=== PATIENT | female | born 1995 | race Caucasian/White ===

== ENCOUNTER 2020-04-11 11:39 | Emergency (ER) | payer BC, SELFPAY ==
[2020-04-11 12:08] VITALS: BP 130/79; PULSE 82; RESP 16; TEMP 36.8; O2SAT 100
--- NOTE | 2020-04-11 12:44 | ED.SKABFB ---
HPI - Skin/Abscess/Foreign Bdy General Chief complaint: Skin/Abscess/Foreign Body Stated complaint: fell left knee pain Time Seen by Provider: 04/11/20 12:45 Source: patient and RN notes reviewed Mode of arrival: ambulatory Limitations: no limitations History of Present Illness HPI narrative: This is a 24 years old female presented office for evaluation of possible skin infection of her left knee. She accidentally fell and scraped knee about 5 days ago. She has been tented her wound with alcohol, peroxide, and covering it up with Neosporin and dressing. She noticed the pain has increasing with swelling. Td is up-to-date. Denies history of MRSA. Related Data Allergies Allergy/AdvReac Type Severity Reaction Status Date / Time ampicillin Allergy Unknown Verified 01/12/17 07:25 Penicillins Allergy Unknown Dyspnea / Verified 01/12/17 07:25 SOB venom-honey bee Allergy Unknown Verified 01/12/17 07:25 Review of Systems Review of Systems: Narrative: CONSTITUTIONAL: Denies fever or feeling ill CARDIOVASCULAR: Denies chest pain RESPIRATORY: Denies dyspnea GASTROINTESTINAL: Denies abdominal pain, nausea, vomiting SKIN: Reports skin abrasion on her left hand, knee and great toe MUSCULOSKELETAL: Reports left knee pain with bending or walking and touching NEUROLOGIC: Denies lightheaded PMFSH Comments At time of signature, I agree with nursing past medical, surgical, social and family history. There is no relevant family history pertinent to the presenting complaint. Exam Narrative: Exam Narrative: GENERAL: This is a well-nourished, well-developed patient, in no apparent distress. CARDIOVASCULAR: Regular rate and rhythm without murmurs, gallops, or rubs. RESPIRATORY: Clear to auscultation. Breath sounds equal bilaterally. No wheezes, rales, or rhonchi. GASTROINTESTINAL: Abdomen soft, non-tender, nondistended. Bowel sounds are active. No hepato-splenomegaly, or palpable masses. No guarding. NEURO: awake, alert, and oriented to person, place and time. There were no obvious focal neurologic abnormalities. EXTREMITIES: Right knee with ROM. Left lateral knee cap note skin abrasion with scab with underlying edematous, erythema, tender and warmth with clear demarcation. NO pain on rectus muscle or patella or tibial tuberosity. No calf tenderness. Pedal pulse intact.Wound on her first dorsal thumb and great toe appear healing as expected. Course Vital Signs Vital signs: Vital Signs Temperature 98.2 F 04/11/20 12:08 Pulse Rate 82 04/11/20 12:08 Respiratory Rate 16 04/11/20 12:08 Blood Pressure 130/79 04/11/20 12:08 Pulse Oximetry 100 04/11/20 12:08 Temperature 98.2 F 04/11/20 12:08 Pulse Rate 82 04/11/20 12:08 Respiratory Rate 16 04/11/20 12:08 Blood Pressure 130/79 04/11/20 12:08 Pulse Oximetry 100 04/11/20 12:08 MDM - Skin/Abscess/Foreign Bdy MDM Narrative Medical decision making narrative: Discharge instructions reviewed with patient, as well as provided in writing per nursing staff. The instructions also include specific and strict return/GO TO THE ER as well as f/u information. All questions have been answered, and the patient deny any further questions with discharge and discharge plan. Differential Diagnosis Differential diagnosis: Likely abscess of skin or subcutaneous tissue, urticaria, cellulitis, impetigo and contact dermatitis Critical Care Time Critical Care Time Critical Care Time: No Discharge Plan Discharge Clinical Impression: Cellulitis Qualifiers: Site of cellulitis: extremity Site of cellulitis of extremity: lower extremity Laterality: left Qualified Code(s): L03.116 - Cellulitis of left lower limb Patient Disposition: Home, Self-Care Condition: Stable Instructions: Antibiotic Form, Cellulitis (DC) Additional Instructions: Clean with soap and water only; Avoid using alcohol and peroxide or covering it to promote faster healing. Elevate the affect
== END 2020-04-11 13:00 | disposition home or self-care (01) ==
PROVIDERS: Emergency Provider Nurse Practitioner; PCP Family Medicine
DX: L03.116 Cellulitis of left lower limb (principal); W19.XXXA Unspecified fall, initial encounter
CPT/HCPCS: 99213; G0463

== ENCOUNTER 2022-06-14 22:19 | Inpatient (IN) | payer OTHER, MEDICAID, SELFPAY ==
--- NOTE | 2022-06-14 22:19 | LDADM ---
This patient, Nyasia Walker, was admitted to Labor/Delivery/Recovery 107 on 06/14/22 at 22:19. Plans for labor, pain management and were discussed with patient. Patient/family oriented to hospital policies and general routines including ID bracelet, bed and alarms, visiting hours, pain management, procedures, bathroom and other care routines, personal items, smoking policy, room service/diet and guest tray routines, infant security routines, and visiting hours. Patient/Family are encouraged to report perceived risks to care and to ask questions if they do not understand what they are told or what they should do. See OBIX for further documentation.
[2022-06-14 22:43] VITALS: TEMP 36.6
[2022-06-14] MEDS: LACTATED RINGERS 1,000 ML 125 ML IV CONT (22:57)
[2022-06-14] MEDS: ceFAZolin 2 GM/D5W 50 ML 2 GM/50 ML BAG IVPB (22:57)
[2022-06-14] MEDS: fentaNYL CITRATE INJ (*CRX) 100 MCG/2 ML VIAL 50 MCG IV PUSH (23:03)
[2022-06-14 23:05] VITALS: BMI 30.2
[2022-06-14 23:16] VITALS: BP 160/98; PULSE 80
[2022-06-14 23:18] VITALS: BP 111/52; PULSE 88
[2022-06-14 23:20] LABS: Basophils Percent Auto 0.2 % (0.2-1.2); Eosinophils Absolute Auto 0.1 K/mm3 (0-0.3); Eosinophils Percent Auto 0.7 % (0-4.4); Hematocrit 34.6 % (37.0-47.0); Immature Granulocyte Absolute 0.05 K/mm3 (0.00-0.031); Immature Granulocyte Percent A 0.4 % (0-0.5); Lymphocytes Absolute Auto 2.03 K/mm3 (0.9-3.2); Lymphocytes Percent Auto 17.1 % (18.3-44.2); Mean Corpuscular HGB Conc 31.8 g/dl (32-36); Mean Corpuscular Hemoglobin 28.3 pg (26-34); Mean Corpuscular Volume 88.9 fl (80-100); Mean Platelet Volume 11.4 fl (7.4-10.4); Monocytes Absolute Auto 0.8 K/mm3 (0.1-0.6); Monocytes Percent Auto 6.3 % (2.6-8.5); Neutrophils Percent Auto 75.3 % (45.5-73.1); Platelet Count Result 287 k/mm3 (150-375); Red Blood Count 3.89 M/mm3 (4.2-5.4); Red Cell Distribution Width 13.8 % (11.5-14.5); White Blood Count 11.9 K/mm3 (4.5-10.0)
[2022-06-14 23:32] VITALS: BP 138/81; PULSE 87
[2022-06-14 23:46] VITALS: BP 158/139
[2022-06-15] VITALS (202 sets, daily range): BP systolic 94–176; BP diastolic 40–139; PULSE 27–267; RESP 16–18; TEMP 36.6–37.2; O2SAT 72–100
[2022-06-15 00:11] LABS: HIV 1/2 Ab P24 Ag Result Negative (Negative)
[2022-06-15] MEDS: fentaNYL CITRATE INJ (*CRX) 100 MCG/2 ML VIAL 50 MCG IV PUSH (00:11)
[2022-06-15] MEDS: LACTATED RINGERS 1,000 ML 125 ML IV CONT ×2 (00:41→03:58)
--- NOTE | 2022-06-15 01:01 | WPDANESEPP ---
Anes - Eval Pre Procedure Procedure: Labor epidural Date/Time: 06/15/22 01:01 Surgeon: Dustin Allen Preop Diagnosis: Abd pain with contractions Pre Op Diagnosis: Leaking Patient Data Age: 26 Gender: F Height: 1.73 m Weight: 90 kg Last Vital Signs Temp 98 F 06/14/22 22:43 Pulse 89 06/15/22 00:14 BP 138/83 06/15/22 00:14 O2 Del Method Room Air 06/14/22 23:05 Allergies Allergy/AdvReac Type Severity Reaction Status Date / Time venom-honey bee Allergy Intermediate Swelling Verified 06/14/22 23:10 acetaminophen [From Percocet] Allergy Unknown Vomiting Verified 06/14/22 23:10 ampicillin Allergy Unknown Dyspnea / Verified 06/14/22 23:10 SOB oxycodone [From Percocet] Allergy Unknown Vomiting Verified 06/14/22 23:10 Penicillins Allergy Unknown Dyspnea / Verified 06/14/22 23:10 SOB Home Medications Medication Instructions Recorded Confirmed Type prenat.vits,loan,hvd-rrel-pjebj 1 tablet PO DAILY 05/21/22 06/14/22 History Laboratory Tests 06/14/22 06/14/22 06/14/22 23:00 23:00 23:00 WBC 11.9 K/mm3 H K/mm3 (4.5-10.0) RBC 3.89 M/mm3 L M/mm3 (4.2-5.4) Hgb 11.0 g/dL L g/dL (12.0-15.0) Hct 34.6 % L % (37.0-47.0) MCV 88.9 fl fl (80-100) MCH 28.3 pg pg (26-34) MCHC 31.8 g/dl L g/dl (32-36) RDW 13.8 % % (11.5-14.5) Plt Count 287 k/mm3 k/mm3 (150-375) MPV 11.4 fl H fl (7.4-10.4) Immature Gran % (Auto) 0.4 % % (0-0.5) Neut % (Auto) 75.3 % H % (45.5-73.1) Lymph % (Auto) 17.1 % L % (18.3-44.2) [place] % (Auto) 6.3 % % (2.6-8.5) Eos % (Auto) 0.7 % % (0-4.4) Baso % (Auto) 0.2 % % (0.2-1.2) Lymph # (Auto) 2.03 K/mm3 K/mm3 (0.9-3.2) [place] # (Auto) 0.8 K/mm3 H K/mm3 (0.1-0.6) Eos # (Auto) 0.1 K/mm3 K/mm3 (0-0.3) Baso # (Auto) 0.0 K/mm3 K/mm3 (0.0-0.1) Abs Immat Gran (auto) 0.05 K/mm3 H K/mm3 (0.00-0.031) Absolute Neuts (auto) 9.0 K/mm3 H K/mm3 (1.3-6.7) Absolute Nucleated RBC 0.0 K/mm3 K/mm3 (0.0-0.012) Nucleated RBC % 0.0 % % (0.0-0.2) RPR Pending HIV 1&2 Ab/P24 Ag 4thGn Negative (Negative) Blood Type Antibody Screen 06/14/22 23:00 WBC RBC Hgb Hct MCV MCH MCHC RDW Plt Count MPV Immature Gran % (Auto) Neut % (Auto) Lymph % (Auto) [place] % (Auto) Eos % (Auto) Baso % (Auto) Lymph # (Auto) [place] # (Auto) Eos # (Auto) Baso # (Auto) Abs Immat Gran (auto) Absolute Neuts (auto) Absolute Nucleated RBC Nucleated RBC % RPR HIV 1&2 Ab/P24 Ag 4thGn Blood Type O Positive Antibody Screen Negative Patient hx anesthesia problems: none Family hx anesthesia problems: none Results Review: All pre-operative results and documents have been reviewed as part of the pre-operative evaluation. [facility] Past Medical History Medical History (Updated 06/15/22 @ 01:02 by Yunior Meza CRNA) Obesity and not yet delivered Family History Family History (Updated 05/21/22 @ 15:43 by Chip Pemberton RN) Father Hypertension Mother Hypertension Grandparent Hypertension Grandparent Heart attack Hypertension Social History Social History Smoking status: Never smoker Substance use: never Spiritual care concerns: No Exam Day of Procedure 06/15/22 01:01 Patient weight: obese Airway: Mallampati scale class II
--- NOTE | 2022-06-15 03:50 | WPDOBADMIT ---
Obstetrics - Admit Note Admission Note: record reviewed. Additions to the history and/or subsequent changes in the physical findings follow. 26 y/o G1 at 39 weeks with a gush of fluid at 2110 last evening. SROM confirmed on L&D. Contractions began afterward. She is now comfortable with epidural. Meconium-stained fluid noted. GBS pos, with PCN allergy. FHR decelerations with tachysystole, so she received one dose of terbutaline. FHR has recovered. AVSS NST 120 reactive TOCO: contractions every 4-5 min ABD soft, nontender, gravid, vertex EXT nontender Cervix /0 A: IUP at 39 weeks with SROM, meconium, GBS pos. P: Expectant management. Cefazolin. Peds aware. Anticipate .
[2022-06-15] MEDS: FAMOTIDINE 20 MG/2 ML VIAL IV PUSH (03:52)
[2022-06-15] MEDS: ONDANSETRON INJ 4 MG/2 ML VIAL IV PUSH (04:50)
[2022-06-15] MEDS: OXYTOCIN 30 UNITS/NS 500 ML 30 UNITS/500 ML BAG IV CONT (07:31)
--- NOTE | 2022-06-15 10:35 | PM.OBPRVD ---
OB - Delivery Note Procedure Delivery date: 06/15/22 Procedure: Induction method: None Delivery augmentation: Pitocin Delivery monitor: External FHT, External Uterine and Internal Uterine Route of delivery: Episiotomy description: Midline Delivery repair: vicryl (3-0) Specimen: Yes (Placenta, cord blood) Quantitative Blood Loss (ml): 85 Anesthesia type: Epidural Disposition: PACU Complications: None Narrative: 26 y/o G1 at 39 1/7 weeks gestation who presented to the hospital after a gush of fluid. SROM of meconium-stained fluid was diagnosed. She received an epidural. She was given Ancef for GBS colonization and PCN allergy. Oxytocin was administered intravenously to augment labor. Her cervix dilated completely. She pushed with good effort and delivered. A midline episiotomy was made and the 's head delivered to the perineum. A loose nuchal cord was splinted and the body delivered. The cord was reduced. The nose and mouth were bulb suctioned. After a delay, the cord was clamped and cut. The infant was handed off the field. Cord blood was collected. The placenta delivered spontaneously and was grossly normal in appearance. The usual 3 vessel cord was noted. The midline episiotomy was reapproximated using 3 0 Vicryl in the usual layered fashion. Excellent hemostasis resulted as did excellent reapproximation of the normal anatomy. Needle and instrument counts were correct. The patient was taken to recovery room in stable condition. The infant went to the nursery in stable condition. I was present and scrubbed for the entire delivery. [place] [facility] Date of : 06/15/22 Time of : 10:17 Weeks of gestation at delivery: 39 Infant gender: Male Weight (pounds): 7 Weight (ounces): 1 presentation: vertex position: Left Occiput Anterior Placenta delivery description: Spontaneous and Normal Configuration Cord Vessel Description: 3 Vessels, Nuchal Cord and Delayed Cord Clamping score one minute: 8 score five minutes: 9
--- NOTE | 2022-06-15 10:40 | PM.OBDSVD ---
DS: Admitting Diagnosis Discharge Date 06/17/22 Admitting Diagnosis IUP at 39 1/7 weeks SROM DS: Discharge Diagnosis Discharge Diagnosis (1) (normal spontaneous vaginal delivery): Code(s): O80 - Encounter for full-term uncomplicated delivery Status: Acute OB - DS: Summary OB Procedures : None OB Procedures Intrapartum: Episiotomy (midlilne) and GBS prophylaxis OB Procedures: : None Time Spent with Patient Time attestation: Total time spent providing and/or coordinating discharge services: DS: Data Data Completed and Pending Labs on day of discharge: Labs from last 24 hours 06/14/22 06/14/22 06/14/22 23:00 23:00 23:00 WBC RBC Hgb Hct MCV MCH MCHC RDW Plt Count MPV Immature Gran % (Auto) Neut % (Auto) Lymph % (Auto) [place] % (Auto) Eos % (Auto) Baso % (Auto) Lymph # (Auto) [place] # (Auto) Eos # (Auto) Baso # (Auto) Abs Immat Gran (auto) Absolute Neuts (auto) Absolute Nucleated RBC Nucleated RBC % RPR Pending HIV 1&2 Ab/P24 Ag 4thGn Negative Blood Type O Positive Antibody Screen Negative 06/14/22 23:00 WBC 11.9 H RBC 3.89 L Hgb 11.0 L Hct 34.6 L MCV 88.9 MCH 28.3 MCHC 31.8 L RDW 13.8 Plt Count 287 MPV 11.4 H Immature Gran % (Auto) 0.4 Neut % (Auto) 75.3 H Lymph % (Auto) 17.1 L [place] % (Auto) 6.3 Eos % (Auto) 0.7 Baso % (Auto) 0.2 Lymph # (Auto) 2.03 [place] # (Auto) 0.8 H Eos # (Auto) 0.1 Baso # (Auto) 0.0 Abs Immat Gran (auto) 0.05 H Absolute Neuts (auto) 9.0 H Absolute Nucleated RBC 0.0 Nucleated RBC % 0.0 RPR HIV 1&2 Ab/P24 Ag 4thGn Blood Type Antibody Screen Discharge Plan Discharge Attending physician on discharge: Gianni Pizano Consulting providers: Yunior Meza ; Caron Christianson Discharging Clinician: Dalla Tiffany,Gianni J. Patient Disposition: Home, Self-Care Activity: pelvic rest Diet: regular Discharge Instructions: Call or return if temperature above 100.4? F, increased abdominal pain, increased vaginal bleeding or any new problems. Education: Mom and Baby Guide Given to: Mother Follow-Up: Call your delivering provider's office for an appointment to be seen in: 6 Weeks Mom and baby should come to the [facility] for the follow-up appointment. Appointment Date/Time: June 18, 2022 at 8:00 am What to expect at your follow-up visit: Physical Assessment Call [phone] if you are unable to keep your appointment time. BREAST CARE: * Wear a snug supportive bra. * For engorgement discomfort: Breast Feeding: * Apply warm moist washcloths * Express milk as needed to relieve engorgement * Wear loose clothing * For sore nipples: * Identify correct latch-on * Apply warm moist washcloths before and after nursing * Air dry nipples after nursing * May apply Lansinoh cream to nipples EPISIOTOMY/PERINEAL CARE: * Until bleeding stops, use your stanley bottle after urinating * Change your pad frequently throughout the day * You may take sitz baths several times a day (fill your bathtub with warm water and soak for 20 minutes.) Do NOT bathe in the water * No tub baths until seen by your physician - You may shower ACTIVITY: * Rest as much as possible. * Do not exercise or lift anything heavier than your baby (such as laundry or other children.) * Avoid stairs or driving as much as possible. * Do not put anything into the vagina. No douching, tampons, or sexual activity until seen by physician. NOTIFY PHYSICIAN IF YOU HAVE ANY QUESTIONS OR IF ANY OF THE FOLLOWING SYMPTOMS OCCUR: * If your episiotomy or incision becomes red, swollen, or more painful than what you have experienced in the hospital. * If your vaginal bleeding becomes foul smelling. * If your vaginal bleeding becomes more heavy than a pe
[2022-06-15] MEDS: OXYTOCIN 30 UNITS/NS 500 ML 30 UNITS/500 ML BAG 125 UNITS IV CONT (11:04)
[2022-06-15] MEDS: WITCH HAZEL 40 PADS 1 PAD TOPICAL (12:50)
[2022-06-15] MEDS: BENZOCAINE 20% AER SPR (*SP) 56 GM CAN 1 SPRAY TOPICAL (12:50)
--- NOTE | 2022-06-15 13:40 | PC.NURSE ---
Patient transferred to post room #282 via ( wheelchair ). Support person present. Oriented to unit, room, information board, rooming in, admission packet and security measures. Patient verbalizes understanding.
[2022-06-15] MEDS: IBUPROFEN 600 MG TABLET PO ×2 (13:47→19:57)
[2022-06-16] MEDS: ACETAMINOPHEN 325 MG TABLET 650 MG PO ×3 (00:03→16:21)
[2022-06-16 00:16] VITALS: BP 122/87; PULSE 90; RESP 18; TEMP 36.4; O2SAT 100
[2022-06-16] MEDS: IBUPROFEN 600 MG TABLET PO ×3 (03:55→21:53)
[2022-06-16 04:39] VITALS: BP 129/83; PULSE 77; RESP 18; TEMP 36.3; O2SAT 100
[2022-06-16 05:06] LABS: Hematocrit 31.9 % (37.0-47.0); Hemoglobin 10.1 g/dL (12.0-15.0)
--- NOTE | 2022-06-16 06:19 | PM.OBPNVD ---
OB - PN: Subj Subjective Date/time seen: 06/16/22 06:19 Patient comments: no complaints and pain well controlled baby status: doing well OB - PN: Obj Data Labs CBC & Chem 7: 06/16/22 03:58 Labs: Laboratory Results - last 24 hr 06/16/22 03:58 Hgb 10.1 L Hct 31.9 L OB - PN A/P Plan day: 1 Plan: routine care Time Spent With Patient Time: Total time spent is greater than 50% in coordination of care (as documented) at patient's floor/unit and/or counseling patient: Time with patient: less than 15 minutes
--- NOTE | 2022-06-16 06:35 | PM.DS ---
DS: Admitting Diagnosis Discharge Date 06/17/2022 Admitting Diagnosis term / group B strep DS: Discharge Diagnosis Discharge Diagnosis (1) (normal spontaneous vaginal delivery): Code(s): O80 - Encounter for full-term uncomplicated delivery Status: Acute DS: Summary Hospital Course Reason for hospitalization: labor at term with positive group B strep Hospital Course: patient was admitted the evening of 06/14/2022. She underwent spontaneous vaginal delivery at 1017 a.m.. Her 48hour course was unremarkable. She remained afebrile. She was up, voiding without difficulty, ambulating, generally without complaints. She was up, ambulating, voiding without difficulty, breast-feeding, in Time Spent with Patient Time attestation: Total time spent providing and/or coordinating discharge services: DS: Data Data Completed and Pending Pending studies at discharge: Pending at discharge 06/15/22 11:13 Surgical [PTH] Routine Labs on day of discharge: Labs from last 24 hours 06/16/22 03:58 Hgb 10.1 L Hct 31.9 L Discharge Plan Discharge Attending physician on discharge: Gianni Pizano Discharging Clinician: Gianni Pizano Patient Disposition: Home, Self-Care Activity: pelvic rest Diet: regular Discharge Instructions: Call or return if temperature above 100.4? F, increased abdominal pain, increased vaginal bleeding or any new problems. Stand Alone Forms: General Discharge Information Follow-up/Referrals: Gianni Pizano MD [Physician] - 6 Weeks Discharge Medications: New ibuprofen 600 mg tablet 600 mg PO Q6H PRN (Reason: cramps) Qty: 30 0RF Continued #2 Tablet 1 tablet PO DAILY Date of admission: 06/14/22 22:19 Primary Care Provider: LyleFrancesca Admitting Provider: Gianni Pizano Attending physician on admission: Gianni Pizano Condition: Stable
--- NOTE | 2022-06-16 07:38 | WPDANLDPN2 ---
Anes-Prog Note L&D Date/Time: 06/16/22 07:38 Comfortable throughout: labor and delivery Neuraxial method: epidural Neuro status: Neuro function grossly intact. Vital Signs: Last Vital Signs Temp 36.3 C L 06/16/22 04:39 Pulse 77 06/16/22 04:39 Resp 18 06/16/22 04:39 BP 129/83 06/16/22 04:39 Pulse Ox 100 06/16/22 04:39 O2 Del Method Room Air 06/15/22 20:03 Pain score (VAS): 0 I/O: Intake & Output 06/15/22 06/15/22 06/16/22 15:59 23:59 07:59 Intake Total 1100 500 Output Total 140 Balance 960 500 Patient feedback: Patient satisfied with anesthetic care.
[2022-06-16 07:50] LABS: Rapid Plasma Reagin Non-Reactive (NonReactive)
[2022-06-16 07:55] VITALS: BP 125/82; PULSE 93; RESP 18; TEMP 36.4; O2SAT 99
[2022-06-16] MEDS: MULTIVIT/MIN/PREN/FOL AC/IRON TABLET 1 TAB PO (08:14)
--- NOTE | 2022-06-16 10:07 | PC.NURSE ---
[id number] Introductions were made, then consulted with patient to assess needs related to . Mother led the conversation with her?plans to feed?her infant and the?experience so far. Resources provided for inpatient and outpatient services using a resource guide and mom/baby guide. Mother voiced understanding of information and requested assistance. Mother led the conversation with her experience feeding her so far stating there have feedings that have gone well and some not so much. Nipples grade 1 inverted, sore, reddened, with some bruising in the middle. Infant's tongue is tight and moves past the gum line slightly and rarely on assessment. Mother works well with her with encouragement and education. Encouraged understanding of the benefits of skin to skin and RN unwrapped and placed infant vertically on her chest. demonstrated feeding cues and discussion was had regarding responsive feeding watching for early feeding signs, frequency of feeding on demand about every 8-12 times in 24 hours (every 2-3 hours), milk production, duration of feeding, signs of adequate intake/output and how to record on the feeding sheet. Reviewed positioning and ear, shoulder, hip alignment, supporting the breast, asymmetrical latch (off-center), and leading with the chin with a big open side gape. Mother latched to the left breast using cradle hold. Infant was detached due to mother stating there was a pinching pain. Nipple was misshaped. latched optimally to the right breast in football position. Education given to mother of how to visualize suck/swallow ratios and listen for drinking at the breast. Infant was able to maintain latch without discomfort to mother. After a 15 minute breastfeed self detached, placed skin to skin, burped, then offered the left breast using football positioning. latched optimally and nursed for 10 minutes, then laid content on mothers chest. Nipple care reviewed with a deep optimal latch and good positioning. Resources used to facilitate learning were used with the tool and mom/ baby guide. Mother voiced understanding of responsive feedings, stimulating with skin to skin, hand expressed colostrum, touch with stimulating massage, talking to infant to encourage if it has been 2 -3 hours since the start of the last , to call if infant does not latch or there is discomfort with . Reported to the primary RN.
[2022-06-16] MEDS: WITCH HAZEL 40 PADS 1 PAD TOPICAL (16:22)
[2022-06-16 21:53] VITALS: BP 120/82; PULSE 83; RESP 16; TEMP 36.7
[2022-06-16] MEDS: DOCUSATE SODIUM 100 MG CAPSULE PO (21:53)
--- NOTE | 2022-06-17 06:48 | PM.OBPNVD ---
OB - PN: Subj Subjective Date/time seen: 06/17/22 06:48 Patient comments: no complaints and pain well controlled baby status: doing well and nursing well OB - PN: Obj Data Labs CBC & Chem 7: 06/16/22 03:58 Labs: Laboratory Results - last 24 hr 06/14/22 23:00 RPR Non-reactive OB - PN A/P Plan day: 2 Plan: routine care, discharge home and follow up 6 weeks Time Spent With Patient Time: Total time spent is greater than 50% in coordination of care (as documented) at patient's floor/unit and/or counseling patient: Time with patient: less than 15 minutes
[2022-06-17] MEDS: MULTIVIT/MIN/PREN/FOL AC/IRON TABLET 1 TAB PO (08:36)
[2022-06-17] MEDS: DOCUSATE SODIUM 100 MG CAPSULE PO (08:37)
[2022-06-17] MEDS: IBUPROFEN 600 MG TABLET PO (08:37)
[2022-06-17 08:45] VITALS: BP 131/89; PULSE 76; RESP 18; TEMP 36.9; O2SAT 100
--- NOTE | 2022-06-17 11:36 | PC.NURSE ---
Patient viewed the discharge video Mother & Baby Care, The First Two Weeks . Patient was given the opportunity and encouraged to ask questions. Patient verbalized understanding of information shared and has been given the mother/baby guide for home reference.
[2022-06-18 08:30] VITALS: BP 138/87; PULSE 71; RESP 16; TEMP 36.9; O2SAT 100
== END 2022-06-17 18:10 | disposition home or self-care (01) | DRG 807 ==
LOC: ANHLDR 06-15 10:41 → ANHOB2 06-15 13:44
PROVIDERS: Admitting Provider Obstetrics & Gynecology; PCP Family Medicine; Visit Provider Obstetrics & Gynecology
DX: O99.824 Streptococcus B carrier state complicating childbirth (principal); Z37.0 Single live birth; Z3A.39 39 weeks gestation of pregnancy; O36.8330 Maternal care for abnormalities of the fetal heart rate or rhythm, third trimester, not applicable or unspecified; P03.82 Meconium passage during delivery; O69.81X0 Labor and delivery complicated by cord around neck, without compression, not applicable or unspecified
CPT/HCPCS: 36415; 84112; 85014; 85018; 85025; 86592; 86703; 86850; 86900; 86901; 88307; A9270; G0432; J0690; J2405; J2590; J2795; J3010; J7120

== ENCOUNTER 2022-07-05 14:34 | Emergency (ER) | payer OTHER, MEDICAID, SELFPAY ==
[2022-07-05 14:43] VITALS: BP 137/80; PULSE 117; RESP 18; TEMP 38.6; O2SAT 99
--- NOTE | 2022-07-05 15:10 | ED.SKABFB ---
HPI - Skin/Abscess/Foreign Bdy General Chief complaint: Skin/Abscess/Foreign Body Stated complaint: Right Breast Pain Time Seen by Provider: 07/05/22 15:10 History of Present Illness HPI narrative: Nyasia Walker is a 26-year-old female who had baby recently who is coming to express care with right breast pain. She has been breast-feeding and doing well but in the last 2 days her breast is gotten red and hard and extremely tender and is also running a fever. Patient is allergic to penicillin and we were unable to identify when and if she is ever had cephalexin before so we are going to use an antibiotic that will require her to pump and dump her breast milk Related Data Allergies Allergy/AdvReac Type Severity Reaction Status Date / Time venom-honey bee Allergy Intermediate Swelling Verified 07/05/22 15:11 ampicillin Allergy Unknown Dyspnea / Verified 07/05/22 15:11 SOB Penicillins Allergy Unknown Dyspnea / Verified 07/05/22 15:11 SOB acetaminophen [From Percocet] AdvReac Unknown Vomiting Verified 07/05/22 15:11 oxycodone [From Percocet] AdvReac Unknown Vomiting Verified 07/05/22 15:11 Review of Systems Review of Systems: CONSTITUTIONAL: Denies fever, chills, sweats. EYES: Denies visual changes, redness, discharge. ENT: Denies rhinorrhea, congestion, sore throat, otalgia. CARDIOVASCULAR: Denies chest pain, palpitations, edema. RESPIRATORY: Denies dyspnea, wheezing, cough GASTROINTESTINAL: Denies abdominal pain, nausea, vomiting, diarrhea. GENITOURINARY: Denies dysuria, hematuria, abnormal discharge SKIN: Denies rash or itching. Right breast tenderness and redness NEUROLOGIC: Denies numbness, or focal weakness. PSYCHIATRIC: Denies anxiety or depression. [facility] Past Medical History Medical History Obesity and not yet delivered Family History Family History Father Hypertension Mother Hypertension Grandparent Hypertension Grandparent Heart attack Hypertension Social History Social History Smoking status: Never smoker Substance use: never Spiritual care concerns: No Comments At time of signature, I agree with nursing past medical, surgical, social and family history. There is no relevant family history pertinent to the presenting complaint. Exam Narrative: GENERAL: This is a well-nourished, well-developed patient, in mild distress. HEAD: normocephalic, atraumatic. EYES: Sclera clear/white. Vision is grossly intact. EARS: External ears normal,. Hearing grossly intact. NOSE: External nose normal without nasal discharge, nares without redness, no rhinorrhea. THROAT: Mucous membranes moist, NECK: Neck supple, non-tender CARDIOVASCULAR: Tachycardic rate and rhythm without murmurs, gallops, or rubs. RESPIRATORY: Clear to auscultation. Breath sounds equal bilaterally. No wheezes, rales, or rhonchi. GASTROINTESTINAL: Abdomen soft, non-tender, SKIN: warm, intact with no suspicious lesions or rash, good texture and turgor. Right breast is engorged and tender to touch is hard on lateral side of the breast NEURO: awake, alert, and oriented to person, place and time. There were no obvious focal neurologic abnormalities. Steady gait EXTREMITIES: Normal range of motion. BACK: Nontender without deformity. Course Course Level of Care: Express Care Visit Vital Signs Vital signs: Vital Signs Temperature 101.4 F H 07/05/22 14:43 Pulse Rate 117 H 07/05/22 14:43 Respiratory Rate 18 07/05/22 14:43 Blood Pressure 137/80 07/05/22 14:43 Pulse Oximetry 99 07/05/22 14:43 Oxygen Delivery Room Air 07/05/22 14:43 Temperature 101.4 F H 07/05/22 14:43 Pulse Rate 117 H 07/05/22 14:43 Respiratory Rate 18 07/05/22 14:43 Blood Pressure 137/80 07/05/22 14:43 Pulse Oximetry 99 07/05/22 14:43 Oxygen Deliv
== END 2022-07-05 15:39 | disposition home or self-care (01) ==
PROVIDERS: Emergency Provider Nurse Practitioner; PCP Family Medicine
DX: N61.0 Mastitis without abscess (principal); E66.9 Obesity, unspecified; Z68.25 Body mass index [BMI] 25.0-25.9, adult
CPT/HCPCS: 99213; G0463

== ENCOUNTER 2022-08-29 01:37 | Day surgery (SDC) | payer OTHER, MEDICAID, SELFPAY ==
[2022-08-25 13:06] VITALS: BMI 25.6
--- NOTE | 2022-08-25 13:28 | SUR.PREOP ---
Report to the Outpatient Waiting Room, entrance under the green pavilion located off [facility], at time 1230 on date 08/29/2022. Planned Procedure Time: 1430. Time changes happen often and if your time is changed the preop area will call you the afternoon before. - You and your visitor will be asked to self-screen and do not enter if you have any COVID symptoms. - We encourage only one visitor and NO visitors under age 16 are allowed at this time. Your visitor will receive communication by the phone number that is given day of service. - The patient visitor is requested to social distance or may leave the building when not with patient due to restrictions. - A mask is required within the hospital. Patients may have clear liquids (water, carbonated beverages, clear teas, apple juice) until 3 hours prior to surgery with a maximum of 20 ounces- 1130. - No food from midnight until time of surgery - Infants may have breast milk until 4 hours before surgery, formula 6 hours prior to surgery. - Children will be allowed to drink immediately following surgery. If applicable, please bring a bottle or sippy cup to assist with drinking. Juice, water, soda, and popsicles are readily available. For infants on formula, please bring formula the day of surgery. Pacifiers are allowed. Take the following medications with a SIP of water the morning of surgery: NONE Medications to discontinue per physician Vitamins Date to take last dose 08/26/2022 Please no make-up, nail eritrean, hairspray, perfume, deodorant, or body powder the day of surgery. No jewelry (including any body piercings) or valuables the day of surgery, leave them at home. Please take a shower or bath the night before, or the morning of, surgery with an antibacterial soap. Wear comfortable, loose fitting clothing. Children are encouraged to wear pajamas. - Jewelry must be removed prior to entering the operating room. Rings and piercings that are not removed may be cut off. - The hospital will not accept responsibility for valuables. - Please leave all valuables, including medications, at home the day of surgery. If you are going home after surgery, a licensed gravel truck driver must drive you home. - NO public transportation without another adult. - We recommend that an adult stay with you for 24 hours following discharge. - We also recommend that you do not drive, make important decision, drink alcoholic beverages, or take any drugs that were not prescribed by your health care provider for at least 24 hours after your discharge time. For Pediatric surgeries, we recommend two adults accompany the child home. Follow any additional instructions given to you from your surgeon. If you or anyone in your household have experienced Covid symptoms in the past week, please notify your surgeon or the nurse liaison at the phone number below for possible testing. Telephone instructions given to ____Victoria-patient and asked if any additional questions and then verbalized understanding. Patient advised to call surgeon office or pre surgery nurse liaison [phone] if any additional questions.
--- NOTE | 2022-08-27 11:37 | P.HP_ITS ---
H&P: HPI History of Present Illness Date/Time: 08/27/22 11:37 Chief Complaint: The patient is admitted for bilateral tubal ligation Narrative: Patient is admitted for bilateral tubal ligation secondary to desiring permanent and irreversible sterilization. She signed the [facility] consent form. She understands this be a permanent and irreversible procedure. Risks and benefits were reviewed including but not exclusive of , aspiration pneumonia, bleeding, transfusion, perforation injury to bowel, bladder, ureters, or other internal organs with need for open laparotomy. Failure rate of 12/999 was reviewed as well. She had all questions answered and received the [employer] handout entitled sterilization for men and women. She asked to proceed PMFSH Past Medical History Medical History Obesity and not yet delivered Family History Family History Father Hypertension Mother Hypertension Grandparent Hypertension Grandparent Heart attack Hypertension Social History Social History Smoking status: Never smoker Alcohol intake: current Drinks per week: 3 Substance use: never Living arrangements: with family Spiritual care concerns: No Meds Home Medications and Allergies Home Medications Medication Instructions Recorded Confirmed Type PNV 153-FA 400 mcg-om3 35 mg-dha 1 tablet PO BID 08/25/22 08/25/22 History 25 mg-epa 5 mg-fish oil chew tablet ( Gummies) Allergies Allergy/AdvReac Type Severity Reaction Status Date / Time amoxicillin Allergy Intermediate Dyspnea / Verified 08/25/22 13:06 SOB Penicillins Allergy Intermediate Dyspnea / Verified 08/25/22 13:04 SOB oxycodone [From Percocet] AdvReac Intermediate Nausea and Verified 08/25/22 13:05 Vomiting Exam Const: General: cooperative, healthy appearing, comfortable and well groomed Nutritional Appearance: average body habitus Orientation/consciousness: oriented to person, oriented to place and oriented to time Resp: Effort & Inspection: normal respiratory effort Cardio: Rate: regular rate Rhythm: regular rhythm Heart sounds: S1 normal heart sound present and S2 normal heart sound present GI: Inspection: normal to inspection : External Female Exam: normal external appearance Speculum Exam - Vagina: normal appearance of the vagina Speculum Exam - Cervix: normal appearance of the cervix Assessment and Plan Assessment and plan (1) Sterilization: Code(s): Z30.2 - Encounter for sterilization Status: Acute Plan Laparoscopic bilateral tubal ligation
--- NOTE | 2022-08-28 14:49 | P.PNAN_ITS ---
Anes - Initial Pre Proc Eval Procedure: Operation Date: 08/29/22 14:30 Proposed Procedures p Laparoscopic Bilateral Tubal Ligation with Fallopian Rings - Gianni Allen MD Date/Time: 08/28/22 14:49 Surgeon: Gianni Aleln MD Pre Op Diagnosis: Krista Kumari Patient Data Age: 27 Gender: F Height: 1.73 m Weight: 76.36 kg Allergies Allergy/AdvReac Type Severity Reaction Status Date / Time amoxicillin Allergy Severe Dyspnea / Verified 08/29/22 12:34 SOB Penicillins Allergy Severe Dyspnea / Verified 08/29/22 12:34 SOB oxycodone [From Percocet] AdvReac Mild Nausea and Verified 08/29/22 12:34 Vomiting Home Medications Medication Instructions Recorded Confirmed Type PNV 153-FA 400 mcg-om3 35 mg-dha 1 tablet PO BID 08/25/22 08/29/22 History 25 mg-epa 5 mg-fish oil chew tablet ( Gummies) hydrocodone 5 mg-acetaminophen 325 1 tablet PO Q4H PRN pain #14 tabs 08/29/22 Rx mg tablet Patient hx anesthesia problems: none Family hx anesthesia problems: none Results Review: All pre-operative results and documents have been reviewed as part of the pre- operative evaluation. [facility] Family History Family History Father Hypertension Mother Hypertension Grandparent Hypertension Grandparent Heart attack Hypertension Social History Social History Smoking status: Never smoker Alcohol intake: current Drinks per week: 3 Substance use: never Living arrangements: with family Spiritual care concerns: No Anes - Eval Final PreProcedure Day of Procedure 08/28/22 14:49 Patient weight: overweight Heart: regular rate and rhythm Lungs: clear to auscultation and normal air movement Airway: Mallampati scale class II Neurological: alert and oriented Last oral intake: >/= 8 hours ASA classification: I Emergent: no Anesthetic plan: proceed Anesthesia type and monitoring: general ETT Results Review: All pre-operative results and documents have been reviewed as part of the pre- operative evaluation. Informed Consent: The patient's anesthetic plan and its attendant risks and benefits were discussed with the patient/family/POA. Questions were solicited and answers provided to the satisfaction of the patient/family/POA.
[2022-08-29] VITALS (10 sets, daily range): BP systolic 122–163; BP diastolic 80–97; PULSE 62–83; RESP 12–20; TEMP 36.4–36.7; O2SAT 99–100
--- NOTE | 2022-08-29 06:18 | WPDHPUPDATE1 ---
History and Physical Update Update Date/Time: 08/29/22 06:18 History and Physical has been reviewed, including an updated exam of the patient. There are NO changes in the patient's condition. Risks, benefits, and alternatives have been discussed and questions answered. Patient agrees to proceed with procedure.
[2022-08-29] MEDS: ACETAMINOPHEN 500 MG TABLET 1000 MG PO (12:40)
[2022-08-29] MEDS: LACTATED RINGERS 1,000 ML 30 ML IV CONT ×3 (12:45→15:12)
[2022-08-29] MEDS: KETOROLAC 15 MG/ML VIAL (*BKC) IV PUSH ×2 (12:46→14:42)
--- NOTE | 2022-08-29 13:58 | P.OP_ITS ---
Procedure Note - Detailed Date of Procedure 08/29/22 Pre-op Diagnosis Vol Steril Post-op Diagnosis Same Procedure Performed Laparoscopic bilateral tubal ligation via silastic rings Surgeon Gianni Allen MD Anesthesia General Indications this is a 27-year-old multipara desires permanent irreversible sterilization Findings normal-appearing uterus ovaries tubes. Appendix appeared normal Description of Procedure the patient is prepped draped normal sterile fashion placed in the dorsal lithotomy position. Under excellent general trach anesthesia weighted speculum placed in posterior fornix vagina. Anterior lip of the cervix grasped with a single-tooth tenaculum and the Nguyen's cannula inserted to the cervix. This was attached to the single-tooth to be used later for uterine manipulation. After e mptying the bladder clear urine the weighted speculum was removed the gloves were changed. An infraumbilical incision made the Veress needle passed in the. Abdomen filled with CO2 gas to 15 mercury. The 5 trocar advanced under direct visualization injury. Patient placed in Trendelenburg and a suprapubic incision made. The 8mm trocar advanced in the abdomen under direct visualization assuring no injury. The right fallopian tube was grasped and a good knuckle of tube formed with the fallopian tube implant. This was repeated on contralateral side excellent blanching photo documentation was undertaken. The appendix appeared within normal limits. The lower site removed. The gas removed from the abdomen. The upper site removed. The incisions closed with 4-0 Monocryl and glue. the patient was awakened and went to recovery in satisfactory condition. All sponge, needle, instrument counts were correct. There were no immediate complications noted Estimated Blood Loss 25 Drains No Packing No Pathology None sent Complications No immediate complications Condition Stable Disposition PACU
[2022-08-29] MEDS: fentaNYL CITRATE INJ (*CRX) 100 MCG/2 ML VIAL 25 MCG IV PUSH ×7 (14:26→15:12)
[2022-08-29] MEDS: HYDROmorphone HCL INJ (*CRX) 1 MG/ML SYR 0.5 MG IV PUSH ×2 (15:43→15:57)
[2022-08-29] MEDS: HYDROcodone/acetaminophen (*CRX) 5-325 MG TABLET 1 TAB PO (15:45)
== END 2022-08-29 16:51 | disposition home or self-care (01) ==
PROVIDERS: PCP Family Medicine; Visit Provider Obstetrics & Gynecology
PROC: (CPT 58671; principal; 2022-08-29 14:30)
DX: Z30.2 Encounter for sterilization (principal)
CPT/HCPCS: 58671; A4264; A9270; J1100; J1170; J1885; J2250; J2405; J2704; J2710; J3010; J7120

== ENCOUNTER 2024-02-18 16:57 | Emergency (ER) | payer OTHER, SELFPAY ==
[2024-02-18 17:25] VITALS: BP 130/88; PULSE 99; RESP 20; TEMP 36.6; O2SAT 99
--- NOTE | 2024-02-18 17:29 | ED.URI ---
HPI - URI/Sore Throat General Chief Complaint: Upper Respiratory Infection Stated Complaint: Cough/Sinus Time Seen by Provider: 02/18/24 17:29 Source: patient, RN notes reviewed and old records reviewed Mode of arrival: ambulatory Limitations: no limitations History of Present Illness HPI Narrative: 28-year-old female presents to the [facility] with complaints of cough, sinus congestion and left ear discomfort as well as a dry throat since Thursday. Has been taking DayQuil and NyQuil. Patient is concern for strep because it has been going around her work. Denies fevers. Onset (ago): day(s) (5) Treatments prior to arrival: cold medicine Related Data Home Medications Medication Instructions Recorded Confirmed No Home Medications 01/11/24 01/11/24 Allergies Allergy/AdvReac Type Severity Reaction Status Date / Time amoxicillin Allergy Severe Dyspnea / Verified 02/18/24 17:31 SOB Penicillins Allergy Severe Dyspnea / Verified 02/18/24 17:31 SOB oxycodone [From Percocet] AdvReac Mild Nausea and Verified 02/18/24 17:31 Vomiting Review of Systems Review of Systems: All systems reviewed & are unremarkable except as noted in HPI and below Constitutional: Constitutional: Reports no additional constitutional complaints Eyes: Eyes: Reports no additional eye complaints ENT: Reports as per HPI Cardiovascular: Cardiovascular: Reports no additional cardiovascular complaints, Denies chest pain and Denies dyspnea Respiratory: Respiratory: Reports as per HPI, Denies chest congestion, Reports cough and Denies dyspnea Gastrointestinal: Gastrointestinal: Reports no additional gastrointestinal complaints, Denies abdominal pain, Denies nausea and Denies vomiting Musculoskeletal: Musculoskeletal: Reports no additional musculoskeletal complaints Integumentary/Breasts: Skin/Breast: Reports system reviewed and no additional complaints, except as docu Neurologic: Reports system reviewed and no additional complaints, except as documented Psychiatric: Psychiatric: Reports no additional psychiatric complaints Allergic/Immunologic: Allergic/Immunologic: Reports no additional allergic/immunologic complaints PMFSH Past Medical History Medical History Vaginal discharge Surgical History Surgical History H/O dilation and curettage 2013 for cysts and endometriosis 2016 for cysts Family History Family History Father Hypertension Mother Hypertension Grandparent Hypertension Grandparent Heart attack Hypertension Social History Social History Smoking status: Never smoker Alcohol intake: current Drinks per week: 3 Substance use: never Do You Feel Safe in your Home?: Yes Lack of Transportation: No Lack of Food: Never True Current Housing: I Have Housing Concerned About Future Housing: No Difficulty Paying Gas/Electric Bills: No Difficulty Paying for Meds: No Currently Unemployed: No Education: High School Diploma/GED Difficulty w/ Childcare or Family Care: No Living arrangements: with family Occupation/Education: occupation Gender identity (if verbalized by the patient): Female Sexual Orientation (if Verbalized by the Patient): Straight or Heterosexual Spiritual care concerns: No Comments At the time of my signature, I reviewed and agree with the nursing past medical, surgical, social, and family history. There is no relevant family history pertinent to the patient complaint. Exam Const: General: cooperative, healthy appearing, comfortable, no acute distress, well developed, alert and well nourished Nutritional Appearance: well nourished Orientation/consciousness: patient oriented x3 Limitations: no limitations HENMT: Head: normal to inspection
== END 2024-02-18 18:18 | disposition home or self-care (01) ==
PROVIDERS: Emergency Provider Nurse Practitioner; PCP Family Medicine
DX: J32.9 Chronic sinusitis, unspecified (principal); J06.9 Acute upper respiratory infection, unspecified
CPT/HCPCS: 87081; 87880; 99213; G0463

== ENCOUNTER 2025-09-06 17:11 | Observation (INO) | payer BC, SELFPAY ==
--- OUTSIDE RECORDS SUMMARY | 2009-09-21 09:00 | XMS_ITS | Continuity of Care Document ---
Author Organization [facility] Address [address] [place] [address] Phone Care Team Providers Care Floor Technician Name Role Phone Reilly OD, [place] Unavailable Unavailable Procedures Procedure Date Office/outpatient Visit, Est Office/outpatient Visit, Est Office/outpatient Visit, Est Eye Exam Established Pt Office/outpatient Visit, Est Office/outpatient Visit, Est Eye Exam Established Pt Eye Exam, New Patient Advance Directives Directive Yes / No Effective Date File Name No Information Encounters Encounter Description Practice Location Reason(s) For Visit Diagnoses Date Provider Providers Copied on Encounter [place] [facility] [place] [address], [place], [place], [id number], [place] tel:[phone] [facility] No Information Nov-2 0-200 9 Reilly OD [place]. [address] , [address], [place], [address], [place]. tel:[phone] [place] [facility] [place] [address], [place], [place], [id number], [place] tel:[phone] [facility] No Information Nov-1 4-200 9 Reilly OD [place]. [address] , [address], [place], [address], [place]. tel:[phone] Office/outpat ient Visit, [facility], [address], [place], [place], [id number], [place] tel:[phone] [facility] No Information Oct-3 0-200 9 Reilly OD [place]. [address] , [address], [place], [place], [facility], [place]. tel:[phone] [facility], [address] [place] [address] [address], [place], [place], [id number], [place] tel:[phone] [facility] No Information Oct-2 7-200 9 Reilly OD [place]. [address] , [address], [place], [facility], [place]. tel:[phone] Office/outpat ient Visit, [facility], [address] [place] [address] [address], [place], [place], [address], [place] tel:[phone] [facility] No Information Mar-2 1-200 9 Reilly OD [place]. [address] , [address], [place], [facility], [place]. tel:[phone] Office/outpat ient Visit, [facility], [address] [place] [address] [address], [place], [place], [address], [place] tel:[phone] [facility] No Information Mar-1 4-200 9 Reilly OD [place]. [address], [place], [facility], [place]. tel:[phone] [facility], [address], [place], [place], [address], [place] tel:[phone] [facility] No Information Mar-0 7-200 9 Reilly OD [place]. [address] , [address], [place], [address], [place]. tel:[phone] [facility], [address], [place], [place], [address], [place] tel:[phone] [facility] No Information Mar-0 5-200 9 Reilly OD [place]. [address] , [address], [place], [address], [place]. tel:[phone] Family History Family Member Type Diagnosis Age At Onset No Information Payers Payer name Insurance type Covered libertarian ID Authoriza tion(s) Medicaid COUNT INCLUDES THE [facility] [id number] Social History Type Description Quantity Date Captured Comments Sex Female Smoking Status No Information Chief Complaint And Reason For Visit No Information Reason For Referral Reason For Referral No Information History Of Present Illness Encounter Date Complaint History Of Prese nt Illness No Information Functional Status Date Functional Assessmen t No Information Instructions Date Instruction Additional Infor mation No Information Assessments Type Assessment Date No Information Patient Care Teams Name Effective Dates (start - stop) Status Members No Information
--- OUTSIDE RECORDS SUMMARY | 2009-09-21 09:00 | XMS_ITS | Continuity of Care Document ---
Author Organization [facility] Address [address] [place] [address] Phone Care Team Providers Care Blade Boner Name Role Phone Reilly OD, Zion Unavailable [...] Providers Copied on Encounter Office/outpat ient Visit, [facility] [place] [address], [place], [place], [address], [place] tel:[phone] [facility] No Information Nov-2 0-200 9 Reilly OD [place]. [address] , [address], [place], [address], [place]. tel:[phone] Office/outpat ient Visit, [facility] [place], [address], [place], [place], [address], [place] tel:[phone] [facility] No Information Nov-1 4-200 9 Reilly OD [place]. [address], [place], [address], [place]. tel:[phone] Office/outpat ient Visit, [facility], [address], [place], [place], [address], [place] tel:[phone] [facility] No Information Oct-3 0-200 9 Reilly OD [place]. [address], [place], [place], [facility]note 2[place]. tel:[phone] [facility], [address] [place] [address] [address], [place], [place], [address], [place] tel:[phone] SEC [facility] No Information Oct-2 7-200 9 Reilly OD [place]. [address], [place], [place], [facility] [place]note 2[place]. tel:[phone] Office/outpat ient Visit, [facility], [address] [place] [address] [address], [place], [place], [address], [place] tel:[phone] SEC [facility] No Information Mar-2 1-200 9 Reilly OD [place]. [address], [place], [place], [facility] [place][note 2], [place]. tel:[phone] Office/outpat ient Visit, [facility], [address] [place] [address] [address], [place], [place], [address], [place] tel:[phone] [facility] No Information Mar-1 4-200 9 Reilly OD [place]. [address], [place], [place], [facility] [place]note 2[place]. tel:[phone] [facility], [address], [place], [place], [address], [place] tel:[phone] [facility] No Information Mar-0 7-200 9 Reilly OD [place]. [address], [place], [address], [place]. tel:[phone] [facility], [address], [place], [place], [address], [place] tel:[phone] [facility] No Information Mar-0 5-200 9 Reilly OD [place]. [address], [place], [address], [place]. tel:[phone] Family History Family Member Type Diagnosis Age At Onset No Information Payers Payer name Insurance type Covered democrat ID Authoriza tion(s) Medicaid [facility] [id number] Social History Type Description Quantity Date Captured [...]
--- NOTE | ~2025-09-06 | CT_ITS ---
CT abdomen pelvis w con INDICATION:lower abd pain with rebound . COMPARISON: None. TECHNIQUE: Axial images of the abdomen and pelvis were obtained following infusion of 100 mL Isovue 300. Dose optimization technique was utilized. FINDINGS: The lung bases are clear. The liver parenchyma is unremarkable. No intrahepatic mass or ductal dilatation is evident. The gallbladder is unremarkable. The pancreas and spleen are normal in appearance. The adrenal glands are symmetric in size. The kidneys demonstrate symmetric uptake and excretion of contrast. No cystic mass is evident. There is no solid mass. There is no hydronephrosis. The stomach and bowel loops are unremarkable. Thickening and induration of the appendix is consistent with acute appendicitis. There is no free air or free fluid. Appendix measures up to 1 cm. The bladder and rectum are normal. Uterus and endometrium is thickened. Cystic adnexal areas are noted. No free intraperitoneal fluid or air is evident. There is no significant retroperitoneal lymphadenopathy. The aorta, visceral vessels and renal arteries demonstrate normal caliber and patency. The lower thoracic and lumbar vertebrae are in normal alignment. IMPRESSION: Findings are consistent with acute appendicitis. There is no free air or free fluid. All CT scans at this facility are performed using low dose modulation techniques as appropriate to perform exam including the following: automated exposure control; use of iterative reconstruction technique; adjustment of the mA and/or kV according to patient size (this includes techniques or standardized protocols for targeted exams where dose is matched to indication/reason for exam). Reviewed, dictated and finalized at location S. S DRIVER IMPRESSION: Findings are consistent with acute appendicitis. There is no free air or free f luid. All CT scans at this facility are performed using low dose modulation techniqu es as appropriate to perform exam including the following: automated exposure c ontrol; use of iterative reconstruction technique; adjustment of the mA and/or kV according to patient size (this includes techniques or standardized protocol s for targeted exams where dose is matched to indication/reason for exam).
[2025-09-06 17:48] VITALS: BP 164/96; PULSE 97; RESP 20; TEMP 37.2; O2SAT 100
--- NOTE | 2025-09-06 20:17 | ED_ITS ---
HPI - Abdominal Pain General Chief Complaint: Abdominal Pain Stated Complaint: abd pain Time Seen by Provider: 09/06/25 19:56 Source: patient Mode of arrival: ambulatory Limitations: no limitations History of Present Illness HPI narrative: This is a 30-year-old female with history of endometriosis, tubal ligation who presents the ED for abdominal pain. Patient states that earlier today, she had onset of periumbilical abdominal pain that is now more suprapubic. It has become rather severe. She has had nausea but no vomiting. Only prior surgeries are laparoscopic procedures for endometriosis and a tubal ligation. Last bowel movement was 4 hours ago and was ?sludgie?. Related Data Home Medications ?Medication ?Instructions ?Recorded ?Confirmed ?Last Taken ?Type No Home Medications 01/11/24 11/30/24 U nknown History Allergies Allergy/AdvReac Type Severity Reaction Status Date / Time amoxicillin Allergy Severe Dyspnea / Verified 11/30/24 14:16 SOB Penicillins Allergy Severe Dyspnea / Verified 11/30/24 14:16 SOB oxycodone (From Percocet) AdvReac Mild Nausea and Verified 11/30/24 14:16 Vomiting Review of Systems 2 Review of Systems: Gen.: Denies fevers or chills Eyes: Denies eye pain or visual change ENT: Denies congestion Respiratory: Denies shortness of breath or cough CV: Denies chest pain or palpitations GI: As per HPI denies burning, urgency, frequency or hematuria Musculoskeletal: Denies back pain or muscle pain Neuro: Denies numbness, tingling, weakness or focal weakness Skin: Denies rash Except as documented, all other systems reviewed and negative [facility] Past Medical History Medical History Vaginal discharge Surgical History Surgical History H/O dilation and curettage 2013 for cysts and endometriosis 2016 for cysts Family History Family History Father Hypertension Mother Hypertension Grandparent Hypertension Grandparent Heart attack Hypertension Social History Social History Alcohol intake: current Drinks per week: 3 Substance use: never Do You Feel Safe in your Home?: Yes Lack of Transportation: No Lack of Food: Never True Current Housing: I Have Housing Concerned About Future Housing: No Difficulty Paying Gas/Electric Bills: No Difficulty Paying for Meds: No Currently Unemployed: No Education: High School Diploma/GED Difficulty w/ Childcare or Family Care: No Living arrangements: with family Occupation/Education: occupation Gender identity (if verbalized by the patient): Female Sexual Orientation (if Verbalized by the Patient): Straight or Heterosexual Spiritual care concerns: No Exam 2 Narrative: APPEARANCE: No acute distress, nontoxic, resting in bed EYES: EOMI HEENT: Normocephalic, atraumatic, OMM RESPIRATORY: No respiratory distress Clear to auscultation bilaterally with no rhonchi wheezing or rales. CARDIOVASCULAR: Regular rate and rhythm without murmurs rubs or gallops. ABDOMINAL: Soft, tenderness to palpation to the periumbilical and suprapubic regions with guarding MUSCULOSKELETAl: Moves all extremities. No clubbing, cyanosis or edema. NEURO: Awake and alert. Following commands, speech normal, no focal deficits SKIN:: Warm, dry. No rashes lesions or abrasions PSYCHIATRIC: Normal affect/mood, Course Vital Signs Vital signs: Vital Signs Temperature 99 F 09/06/25 17:48 Pulse Rate 97 09/06/25 17:48 Respiratory Rate 20 09/06/25 17:48 Blood Pressure 164/96 H 09/06/25 17:48 Pulse Oximetry 100 09/06/25 17:48 Temperature 99 F 09/06/25 17:48 Pulse Rate 88 09/06/25 20:37 Respiratory Rate 20 09/06/25 20:37 Blood Pressure 153/90 H 09/06/25 20:37 Pulse Oximetry 98 09/06/25 20:37 Oxygen Delivery Room Air 09/06/25 20:37 MDM - Abdominal Pain MDM Narrative Medical decision making narrative: 30-year-old female Presenting for lower abdominal pain. On initial evaluation patient was in mild distress afebrile, hemodynamic stable. Differentials include but are not limited to: Ovarian torsion, ovarian cyst, ectopic , Appendicitis, constipation, IBD, IBS, ureterolithiasis, enterocolitis, colitis, hernia Notable exam findings: Periumbilical and suprapubic tenderness to palpation with guarding. Notable lab findings: Leukocytosis at 14.2. CMP without significant abnormalities. UA clear. Notable imaging findings: CT abdomen/pelvis was consistent with acute appendicitis. Patient did have improvement of her pain and nausea with morphine and Zofran. I discussed the case with Dr. Smith, surgery, will admit the patient for surgery in the morning. Given her penicillin allergy he did recommend meropenem at this time. Discussed this with the patient and she is agreeable to this plan. Medical Records Attestation: I reviewed the patient's medical records. Lab Data Attestation: I reviewed the patient's lab results. 09/06/25 20:35 09/06/25 20:35 Labs: Lab Results 09/06/25 09/06/25 09/06/25 Range/Units 19:56 20:28 20:35 WBC 14.2 H (4.5-10.0) K/mm3 RBC 4.53 (4.2-5.4) M/mm3 Hgb 13.5 D (12.0-15.0) g/dL Hct 42.0 (37.0-47.0) % MCV 92.7 (80-100) fl MCH 29.8 (26-34) pg MCHC 32.1 (32-36) g/dl RDW 12.2 (11.5-14.5) % Plt Count 289 (150-375) k/mm3 MPV 9.6 (7.4-10.4) fl Immature Gran % (Auto) 0.3 (0-0.5) % Neut % (Auto) 86.7 H (45.5-73.1) % Lymph % (Auto) 7.8 L (18.3-44.2) % [place] % (Auto) 4.9 (2.6-8.5) % Eos % (Auto) 0.1 (0-4.4) % Baso % (Auto) 0.2 (0.2-1.2) % Lymph # (Auto) 1.11 (0.9-3.2) K/mm3 [place] # (Auto) 0.7 H (0.1-0.6) K/mm3 Eos # (Auto) 0.0 (0-0.3) K/mm3 Baso # (Auto) 0.0 (0.0-0.1) K/mm3 Abs Immat Gran (auto) 0.04 H (0.00-0.031) K/mm3 Absolute Neuts (auto) 12.3 H (1.3-6.7) K/mm3 Absolute Nucleated RBC 0.000 (0.0-0.012) K/mm3 Nucleated RBC % 0.0 (0.0-0.2) % Sodium 134 L (137-145) mmol/L Potassium 3.9 (3.4-5.0) mmol/L Chloride 102 (98-107) mmol/L Carbon Dioxide 22 (22-30) mmol/L Anion Gap 10 (4-12) mmol/L BUN 12 (7-17) mg/dL Creatinine 0.62 L (0.7-1.0) mg/dL Estim Creat Clear Calc 116 ml/min Estimated GFR > 60 (59 - ) Glucose 110 (65-110) mg/dL Calcium 9.4 (8.4-10.2) mg/dL Total Bilirubin 0.9 (0.2-1.3) mg/dL AST 45 H (14-36) U/L ALT 36 H (6-35) U/L Alkaline Phosphatase 69 (38-126) U/L Total Protein 8.9 H (6.3-8.2) g/dL Albumin 4.9 (3.5-5.1) g/dL Lipase 115 (23-300) U/L Urine Color Yellow (Yellow) Urine Appearance Clear (Clear) Urine pH 7.5 (5.0-9.0) Ur Specific [place] 1.005 (1.001-1.035) Urine Protein Negative (Negative) mg/dL Urine Glucose (UA) Negative (Negative) mg/dL Urine Ketones Negative (Negative) mg/dL Ur Blood (Man) Negative (Negative) Urine Nitrate Negative (Negative) Urine Bilirubin Negative (Negative) Urine Urobilinogen 0.2 (<2.0) mg/dL Leukocyte Esterase Rfl Negative (Negative) ROGE/UL POC Urine HCG, Qual Negative (Negative) Imaging Data Attestation: I personally reviewed and interpreted this imaging study as follows: Radiologist's impression: ITS Impressions Abdomen/Pelvis CT 09/06/25 21:14 IMPRESSION: Findings are consistent with acute appendicitis. There is no free air or free fluid. All CT scans at this facility are performed using low dose modulation techniques as appropriate to perform exam including the following: automated exposure control; use of iterative reconstruction technique; adjustment of the mA and/or kV according to patient size (this includes techniques or standardized protocols for targeted exams where dose is matched to indication/reason for exam). Discharge Plan Discharge Clinical Impression: Acute appendicitis Qualifiers: Acute appendicitis type: with localized peritonitis Appendicitis gangrene presence: unspecified whether gangrene present Appendicitis perforation presence: unspecified whether perforation present Appendicitis abscess presence: unspecified whether abscess present Qualified Code(s): K35.30 - Acute appendicitis with localized peritonitis, without perforation or gangrene Patient Disposition: Still a Patient Condition: Stable
[2025-09-06 20:37] VITALS: BP 153/90; PULSE 88; RESP 20; O2SAT 98
[2025-09-06 20:39] LABS: BEDSIDEPREGUCG Negative (Negative)
[2025-09-06 20:42] LABS: Hematocrit 42.0 % (37.0-47.0); Hemoglobin 13.5 g/dL (12.0-15.0); Immature Granulocyte Percent A 0.3 % (0-0.5); Lymphocytes Absolute Auto 1.11 K/mm3 (0.9-3.2); Mean Corpuscular HGB Conc 32.1 g/dl (32-36); Mean Corpuscular Hemoglobin 29.8 pg (26-34); Mean Corpuscular Volume 92.7 fl (80-100); Nucleated Red Blood Cells Absolute Auto 0.000 K/mm3 (0.0-0.012); Nucleated Red Blood Cells Perc 0.0 % (0.0-0.2); Platelet Count Result 289 k/mm3 (150-375); Red Blood Count 4.53 M/mm3 (4.2-5.4); White Blood Count 14.2 K/mm3 (4.5-10.0)
[2025-09-06 20:43] LABS: Add Urine Microscopic? NO; Appearance Urine Clear (Clear); Glucose Urine UA Negative (Negative); Leukocyte Esterase Ur Negative LEU/UL (Negative); Nitrate Urine Negative (Negative); Specific Grav Ur 1.005 (1.001-1.035)
[2025-09-06] MEDS: ONDANSETRON INJ 4 MG/2 ML VIAL IV PUSH (20:43)
[2025-09-06] MEDS: MORPHINE SULFATE (*CRX) 4 MG/ML INJ IV PUSH (20:44)
[2025-09-06] MEDS: SODIUM CHLORIDE 0.9% IV 1,000 ML 999 ML IV CONT (20:44)
[2025-09-06 20:52] LABS: Alanine Aminotransferase 36 U/L (6-35); Albumin Level 4.9 g/dL (3.5-5.1); Alkaline Phosphatase 69 U/L (38-126); Anion Gap 10 mmol/L (4-12); Aspartate Amino Transferase 45 U/L (14-36); Bilirubin,Total 0.9 mg/dL (0.2-1.3); Blood Urea Nitrogen 12 mg/dL (7-17); Calcium 9.4 mg/dL (8.4-10.2); Carbon Dioxide 22 mmol/L (22-30); Chloride 102 mmol/L (98-107); Estimated CRCL calculation 116 ml/min; Estimated Glomerular Filt Rate > 60; Glucose 110 mg/dL (65-110); Lipase 115 U/L (23-300); Potassium 3.9 mmol/L (3.4-5.0); Sodium 134 mmol/L (137-145); Total Protein 8.9 g/dL (6.3-8.2)
--- NOTE | 2025-09-06 20:59 | PC.NURSE ---
Pt taken to CT on stretcher
[2025-09-06] MEDS: MEROPENEM IV PUSH (22:03)
[2025-09-06] MEDS: LACTATED RINGERS 1,000 ML 125 ML IV CONT (22:47)
[2025-09-06] MEDS: IBUPROFEN IV 800 MG/200 ML 800 MG/200 ML BAG 400 MG IVPB (22:51)
[2025-09-06 23:01] VITALS: PULSE 88; RESP 20; O2SAT 99
[2025-09-06 23:17] VITALS: BMI 24.7
--- NOTE | 2025-09-06 23:18 | ADMGEN ---
This patient, Nyasia Walker, was admitted to Medical Room 348-01. Patient/family oriented to hospital policies and general routines including ID bracelet, bed and alarms, visiting hours, pain management, procedures, bathroom and other care routines, personal items, smoking policy, room service/diet, and visiting hours. Information on how to activate the Rapid Response Team has been discussed. Patient/Family are encouraged to report perceived risks to care and to ask questions if they do not understand what they are told or what they should do.
[2025-09-06 23:46] VITALS: BP 138/85; PULSE 70; RESP 18; TEMP 36.1; O2SAT 100
[2025-09-07] VITALS (7 sets, daily range): BP systolic 120–139; BP diastolic 65–87; PULSE 68–82; RESP 10–18; TEMP 36.1–36.6; O2SAT 95–100
[2025-09-07] MEDS: MORPHINE SULFATE (*CRX) 4 MG/ML INJ IV PUSH ×3 (00:19→11:53)
[2025-09-07] MEDS: LACTATED RINGERS 1,000 ML 125 ML IV CONT (05:16)
--- NOTE | 2025-09-07 07:12 | P.HP_ITS ---
H&P: HPI History of Present Illness Date/Time: 09/07/25 07:12 <Wilian Chowdary DO - Last Filed: 09/07/25 07:19> Chief Complaint: Abdominal pain <Wilian Chowdary DO - Last Filed: 09/07/25 07:19> Narrative: Patient is a 30-year-old female who presented to the emergency department complaining of abdominal pain that started yesterday around 10 am. She reports she has never had anything like this before. She reported that the pain started in the periumbilical region and was vague in nature with associated nausea. She states throughout the day the pain localized to her right lower quadrant was so severe that she elected to proceed to the emergency department. The patient had a leukocytosis with a WBC of 14.2. She had a CT abdomen and pelvis that showed acute appendicitis. She has had a diagnostic laparoscopy for endometriosis as well as a tubal ligation also done laparoscopically. She denies other intra- abdominal surgeries. <Wilian Chowdary DO - Last Filed: 09/07/25 07:19> Review of Systems Review of Systems: All systems reviewed & are unremarkable except as noted in HPI and below <Wilian Chowdary DO - Last Filed: 09/07/25 07:19> PMFSH Past Medical History Medical History: Medical History Vaginal discharge <Wilian Chowdary DO - Last Filed: 09/07/25 07:19> Surgical History Surgical History: Surgical History H/O dilation and curettage 2013 for cysts and endometriosis 2016 for cysts <Wilian Chowdary DO - Last Filed: 09/07/25 07:19> Family History Family History: Family History Father Hypertension Mother Hypertension Grandparent Hypertension Grandparent Heart attack Hypertension <Wilian Chowdary DO - Last Filed: 09/07/25 07:19> Social History Social History: Social History Smoking status: Never smoker Alcohol intake: never Drinks per week: 3 Substance use: never Substance use type: does not use Do You Feel Safe in your Home?: Yes Lack of Transportation: No Lack of Food: Never True Current Housing: I Have Housing Concerned About Future Housing: No Difficulty Paying Gas/Electric Bills: No Difficulty Paying for Meds: No Currently Unemployed: No Education: High School Diploma/GED Difficulty w/ Childcare or Family Care: No Living arrangements: with family Occupation/Education: occupation Gender identity (if verbalized by the patient): Female Sexual Orientation (if Verbalized by the Patient): Straight or Heterosexual Spiritual care concerns: No <Wilian Chowdary, DO - Last Filed: 09/07/25 07:19> Meds Home Medications and Allergies Home medications: Home Medications ?Medication ?Instructions ?Recorded ?Confirmed ?Type No Home Medications 01/11/24 09/06/25 H istory <Wilian Chowdary, DO - Last Filed: 09/07/25 07:19> Allergies/Adverse reactions: Allergies Allergy/AdvReac Type Severity Reaction Status Date / Time amoxicillin Allergy Severe Dyspnea / Verified 09/06/25 23:27 SOB Penicillins Allergy Severe Dyspnea / Verified 09/06/25 23:27 SOB oxycodone (From Percocet) AdvReac Mild Nausea and Verified 09/06/25 23:27 Vomiting <Wilian Chowdary, DO - Last Filed: 09/07/25 07:19> Vital Signs Vital Signs - 24 hr 09/06/25 17:48 09/06/25 20:37 09/06/25 23:01 Temperature 99 F Pulse Rate 97 88 88 Respiratory Rate 20 20 20 Blood Pressure 164/96 H 153/90 H Pulse Oximetry 100 98 99 Oxygen Delivery Room Air 09/06/25 23:46 09/07/25 04:00 Temperature 97.0 F L 97.0 F L Pulse Rate 70 77 Respiratory Rate 18 18 Blood Pressure 138/85 128/86 Pulse Oximetry 100 100 Oxygen Delivery <Wilian Chowdary, DO - Last Filed: 09/07/25 07:19> Exam Narrative: General: Awake, alert, no acute distress HEENT: NC/AT, EOMI Neck: No masses or swelling, no JVD Heart: Regular rate, HDS Lungs: Symmetric expansion, no IWOB, on RA Abdomen: Soft, vaguely TTP diffusely, significantly TTP in RLQ at McBurney's point, nondistended, non peritoneal Extremities: Moves all, normal inspection Psych: Normal affect, normal mood, normal judgment <Wilian Chowdary DO - Last Filed: 09/07/25 07:19> H&P: Results Labs Labs: Short CBC 09/06/25 Range/Units 20:35 WBC 14.2 H (4.5-10.0) K/mm3 Hgb 13.5 D (12.0-15.0) g/dL Hct 42.0 (37.0-47.0) % Plt Count 289 (150-375) k/mm3 BMP 09/06/25 20:35 Sodium 134 L Potassium 3.9 Chloride 102 Carbon Dioxide 22 BUN 12 Creatinine 0.62 L Glucose 110 Calcium 9.4 Liver Function 09/06/25 Range/Units 20:35 Total Bilirubin 0.9 (0.2-1.3) mg/dL AST 45 H (14-36) U/L ALT 36 H (6-35) U/L Alkaline Phosphatase 69 (38-126) U/L Albumin 4.9 (3.5-5.1) g/dL Urine 09/06/25 Range/Units 20:28 Urine Color Yellow (Yellow) Urine Appearance Clear (Clear) Urine pH 7.5 (5.0-9.0) Ur Specific [place] 1.005 (1.001-1.035) Urine Protein Negative (Negative) mg/dL Urine Glucose (UA) Negative (Negative) mg/dL <Wilian Chowdary, DO - Last Filed: 09/07/25 07:19> Assessment and Plan Assessment and plan (1) Acute appendicitis: Qualifiers: Acute appendicitis type: with localized peritonitis Appendicitis abscess presence: unspecified whether abscess present Appendicitis gangrene presence: unspecified whether gangrene present Appendicitis perforation presence: unspecified whether perforation present Qualified Code(s): K35.30 - Acute appendicitis with localized peritonitis, without perforation or gangrene <Wilian Chowdary DO - Last Filed: 09/07/25 07:19> Code(s): K35.80 - Unspecified acute appendicitis <Wilian Chowdary DO - Last Filed: 09/07/25 07:19> Status: Acute <Wilian Chowdary DO - Last Filed: 09/07/25 07:19> Assessment and Plan: Patient presented to the ED with 1 day of abdominal pain. CT abdomen and pelvis showed acute appendicitis. I reviewed the CT scan, there were findings consistent with acute appendicitis, the patient does have a decent amount of periappendiceal fat stranding. She is significantly tender to palpation in the right lower quadrant. I discussed the risks, benefits, and alternatives proceeding with laparoscopic appendectomy. The patient expressed understanding and wishes to proceed with the procedure. We will plan for appendectomy this afternoon. She will remain NPO and on IVF until then. She does have a severe allergy to penicillin and cephalosporins, she reports that whenever she has had these she feels chest pressure and difficulty breathing. We will continue antibiotics with meropenem, which she tolerated last night. Please see attending attestation for final plan an updates <Wilian Chowdary DO - Last Filed: 09/07/25 07:19> Patient presented to the ED with 1 day of abdominal pain. CT abdomen and pelvis showed acute appendicitis. I reviewed the CT scan, there were findings consistent with acute appendicitis, the patient does have a decent amount of periappendiceal fat stranding. She is significantly tender to palpation in the right lower quadrant. I discussed the risks, benefits, and alternatives proce eding with laparoscopic appendectomy. The patient expressed understanding and wishes to proceed with the procedure. We will plan for appendectomy this afternoon. She will remain NPO and on IVF until then. She does have a severe allergy to penicillin and cephalosporins, she reports that whenever she has had these she feels chest pressure and difficulty breathing. We will continue antibiotics with meropenem, which she tolerated last night. Please see attending attestation for final plan an updates She has acute appendicitis. Given IV abx and kept NPO. Proceed to OR today for lap appy. Risks, benefits, indications, and expected outcomes were discussed in detail with the patient and/or family. They understand and I have answered all other questions. They wished to proceed with surgery as outlined above. <Priyank Smith MD - Last Filed: 09/07/25 13:58>
[2025-09-07] MEDS: PANTOPRAZOLE SODIUM IV 40 MG VIAL IV PUSH (08:25)
[2025-09-07] MEDS: MEROPENEM 1 GM in SODIUM CHLORIDE 0.9% IV 100 ML 200 ML IVPB ×2 (08:41→13:50)
--- NOTE | 2025-09-07 11:11 | WPDANESEPPF ---
Anes - Initial Pre Proc Eval Procedure: Operation Date: 09/07/25 13:30 Proposed Procedures p Laparoscopic Appendectomy - Priyank Smith MD Date/Time: 09/07/25 11:11 Surgeon: Priyank Smith MD Pre Op Diagnosis: Acute Appendicitis Patient Data Age: 30 Gender: F Height: 1.75 m Weight: 76 kg Last Vital Signs Temp 36.1 C L 09/07/25 04:00 Pulse 77 09/07/25 04:00 Resp 18 09/07/25 04:00 BP 128/86 09/07/25 04:00 Pulse Ox 100 09/07/25 04:00 O2 Del Method Room Air 09/07/25 08:24 Allergies Allergy/AdvReac Type Severity Reaction Status Date / Time amoxicillin Allergy Severe Dyspnea / Verified 09/06/25 23:27 SOB Penicillins Allergy Severe Dyspnea / Verified 09/06/25 23:27 SOB oxycodone (From Percocet) AdvReac Mild Nausea and Verified 09/06/25 23:27 Vomiting Home Medications ?Medication ?Instructions ?Recorded ?Confirmed ?Type No Home Medications 01/11/24 09/06/25 History hydrocodone 5 mg-acetaminophen 325 1 tablet PO Q4H PRN pain #12 tabs 09/07/25 Rx mg tablet Laboratory Tests 09/06/25 09/06/25 09/06/25 19:56 20:28 20:35 WBC 14.2 H K/mm3 (4.5-10.0) RBC 4.53 M/mm3 (4.2-5.4) Hgb 13.5 D g/dL (12.0-15.0) Hct 42.0 % (37.0-47.0) MCV 92.7 fl (80-100) MCH 29.8 pg (26-34) MCHC 32.1 g/dl (32-36) RDW 12.2 % (11.5-14.5) Plt Count 289 k/mm3 (150-375) MPV 9.6 fl (7.4-10.4) Immature Gran % (Auto) 0.3 % (0-0.5) Neut % (Auto) 86.7 H % (45.5-73.1) Lymph % (Auto) 7.8 L % (18.3-44.2) [place] % (Auto) 4.9 % (2.6-8.5) Eos % (Auto) 0.1 % (0-4.4) Baso % (Auto) 0.2 % (0.2-1.2) Lymph # (Auto) 1.11 K/mm3 (0.9-3.2) [place] # (Auto) 0.7 H K/mm3 (0.1-0.6) Eos # (Auto) 0.0 K/mm3 (0-0.3) Baso # (Auto) 0.0 K/mm3 (0.0-0.1) Abs Immat Gran (auto) 0.04 H K/mm3 (0.00-0.031) Absolute Neuts (auto) 12.3 H K/mm3 (1.3-6.7) Absolute Nucleated RBC 0.000 K/mm3 (0.0-0.012) Nucleated RBC % 0.0 % (0.0-0.2) Sodium 134 L mmol/L (137-145) Potassium 3.9 mmol/L (3.4-5.0) Chloride 102 mmol/L (98-107) Carbon Dioxide 22 mmol/L (22-30) Anion Gap 10 mmol/L (4-12) BUN 12 mg/dL (7-17) Creatinine 0.62 L mg/dL (0.7-1.0) Estim Creat Clear Calc 116 ml/min Estimated GFR > 60 (59 - ) Glucose 110 mg/dL (65-110) Calcium 9.4 mg/dL (8.4-10.2) Total Bilirubin 0.9 mg/dL (0.2-1.3) AST 45 H U/L (14-36) ALT 36 H U/L (6-35) Alkaline Phosphatase 69 U/L (38-126) Total Protein 8.9 H g/dL (6.3-8.2) Albumin 4.9 g/dL (3.5-5.1) Lipase 115 U/L (23-300) Urine Color Yellow (Yellow) Urine Appearance Clear (Clear) Urine pH 7.5 (5.0-9.0) Ur Specific [place] 1.005 (1.001-1.035) Urine Protein Negative mg/dL (Negative) Urine Glucose (UA) Negative mg/dL (Negative) Urine Ketones Negative mg/dL (Negative) Ur Blood (Man) Negative (Negative) Urine Nitrate Negative (Negative) Urine Bilirubin Negative (Negative) Urine Urobilinogen 0.2 mg/dL (<2.0) Leukocyte Esterase Rfl Negative ROGE/UL (Negative) POC Urine HCG, Qual Negative (Negative) Patient hx anesthesia problems: none Family hx anesthesia problems: none Results Review: All pre-operative results and documents have been reviewed as part of the pre-operative evaluation. PMFSH Past Medical History Medical History Vaginal discharge Surgical History Surgical History H/O dilation and curettage 2013 for cysts and endometriosis 2016 for cysts Family History Family History Father Hypertension Mother Hypertension Grandparent Hypertension Grandparent Heart attack Hypertension Social History Social History Alcohol intake: never Drinks per week: 3 Substance use: never Substance use type: does not use Do You Feel Safe in your Home?: Yes Lack of Transportation: No Lack of Food: Never True Current Housing: I Have Housing Concerned About Future Housing: No Difficulty Paying Gas/Electric Bills: No Difficulty Paying for Meds: No Currently Unemployed: No Education: High School Diploma/GED Difficulty w/ Childcare or Family Care: No Living arrangements: with family Occupation/Education: occupation Gender identity (if verbalized by the patient): Female Sexual Orientation (if Verbalized by the Patient): Straight or Heterosexual Spiritual care concerns: No Anes - Eval Final PreProcedure Day of Procedure 09/07/25 11:11 Patient weight: normal Heart: regular rate and rhythm Lungs: clear to auscultation Airway: Mallampati scale class II Neurological: alert and oriented Last oral intake: >/= 8 hours ASA classification: II Emergent: no Anesthetic plan: proceed Anesthesia type and monitoring: general ETT and standard monitoring Results Review: All pre-operative results and documents have been reviewed as part of the pre-operative evaluation. Informed Consent: The patient's anesthetic plan and its attendant risks and benefits were discussed with the patient/family/POA. Questions were solicited and answers provided to the satisfaction of the patient/family/POA.
[2025-09-07] MEDS: LACTATED RINGERS 1,000 ML 30 ML IV CONT (13:20)
--- NOTE | 2025-09-07 13:57 | WPDHPUPDATE1 ---
History and Physical Update Update Date/Time: 09/07/25 13:57 History and Physical has been reviewed, including an updated exam of the patient. There are NO changes in the patient's condition. Risks, benefits, and alternatives have been discussed and questions answered. Patient agrees to proceed with procedure.
[2025-09-07] MEDS: LIDO 1%/EPINEPHRINE 1:100,000 50 ML VIAL 30 ML INFILTRATE (14:28)
--- NOTE | 2025-09-07 14:37 | S_PTH ---
PATIENT: Nyasia Walker LOC: [id number] U#:[id number] AGE/SX: 30/F ROOM: 348 RE09/06/[address]: Priyank Smith MD : 1995 BED: 01 DIS: 09/07/2025 SPEC #: [id number] RECD: 09/08/25 08:07 STATUS: ERNESTINA RE #: [id number] JOHN: 09/07/25 14:[address]: Priyank Smith DEPT: [facility] Surgical RECD BY: Zainab Akers ENTERED: 09/08/25 08:07 SP TYPE: Surgical OTHR DR: Kristina Kay APRN Tissues: A - Appendix Procedures: Hematoxylin and Eosin Stain Gross and Microscopic Level 3
--- OUTSIDE RECORDS SUMMARY | 2025-09-07 15:21 | XMS_ITS | Clinical Summary ---
Author Organization [facility] [employer] Address [address] [place] [address] Care Team Providers Care Electronic Sensing Equipment Assembler Name Role Phone Christiano Felix MD Primary Care Provider [phone] Source Comments [facility] [employer],non-owned Affiliates and Associated Physician Practices is amultiple site organization consisting of ambulatory clinics and hospital sitesin [place], [place], [place] and [place]. This disclosure is being madepursuant to the Care Everywhere program and may not contain all information available regarding this patient. Last updated 18.[facility] [employer] Allergies Active Allergy Reactions Criticality Noted Date Comments Shellfish 01/14/2011 Medications * Be aware that medications may not be up to date on this document. Alwaysverify current medications with the patient. IBUPROFEN PO Take by mouth as needed. 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 Gender Identity Not on file Sexual Orientation Not on file Last Filed Vital Signs Vital Sign Reading Time Taken Comments Blood Pressure - - Pulse - - Temperature - - Respiratory Rate - - Oxygen Saturation - - Inhaled Oxygen Concentration - - Weight 47.4 kg (104 lb 6.4 oz) 01/14/2011 9:36 A M CDT Height 171 cm (5' 7.32) 01/14/2011 9:36 AM CDT Body Mass Index 16.19 01/14/2011 9:36 AM CDT Plan of Treatment Health Maintenance Due Date Last Done Comments HIV SCREENING 2008 HEPATITIS C SCREENING 07/08/2011 DTAP/TDAP/TD VACCINES (1 - Tdap) 2012 HEPATITIS B VACCINE (1 of 3 - 19+ 3-dose series) 2012 HPV VACCINE (1 - 3-dose SCDM series) 2020 DEPRESSION SCREENING 11/02/2024 COVID-19 VACCINE (1 - 2023-2 5 season) 2025 INFLUENZA VACCINE (#1) 2025 ZOSTER VACCINE (1 of 2) 2043 HIB VACCINE Aged Out No longer eligi ble based on patient's age to complete this topic MENINGOCOCCAL (Group B) VACC INE SHARED DECISION-MAKING Aged Out No longer eligibl e based on patient's age to complete this topic MENINGOCOCCAL GROUPS A/C/Y/W VACCINE Aged Out No longer eligible b ased on patient's age to complete this topic PNEUMOCOCCAL VACCINE Aged Out No long er eligible based on patient's age to complete this topic Insurance MEDICAID - OUT OF STATE [address] Care Teams Electronic Sensing Equipment Assembler Relationship Specialty Start Date End Date Christiano Felix MD [address] [place] [address] PCP - General 01/14/11
--- NOTE | 2025-09-07 15:24 | W.PM.PROC2 ---
Procedure Note - Detailed Date of Procedure 09/07/25 Pre-op Diagnosis Acute Appendicitis Post-op Diagnosis Same Procedure Performed Laparoscopic appendectomy Surgeon Priyank Smith MD Records Specialist Rosa Dunn [facility] Anesthesia General Indications Patient is a 30-year-old female who presented to the emergency room late last evening with a history of worsening lower abdominal pain which localized to right lower quadrant the abdomen[place] [address] scan showed a dilated inflamed appendix without perforation. She presents now for an urgent laparoscopic appendectomy. Findings The appendix was dilated inflamed distal 2/3. The proximal part of the appendix at the base was normal appearing without inflammatory changes. No perforation or gangrene of the appendix was seen. No periappendiceal abscess. Description of Procedure After informed consent was obtained patient brought to the operating room she was placed supine position and general endotracheal anesthesia was administered. The abdomen was then prepped and draped usual sterile fashion after placement of Lowery catheter due to decompress the bladder. First started by entering the abdomen left upper quadrant utilizing a 5mm Optiview port. Once inside the abdomen insufflated to adequate pneumoperitoneum of 15mmHg CO2. I then placed a 5mm super pubic trocar port and a 12mm periumbilical trocar port all under direct visualization. Working through these ports I was able to manipulate and identified the appendix in the right lower quadrant the abdomen utilizing laparoscopic instruments. The appendix appeared to be dilated and inflamed throughout its distal 2/3. The base of the appendix appeared to be normal without inflammatory changes. I then proceeded to make a defect through the mesoappendix with a laparoscopic dissected or and then used a echelon 45mm powered NIECY stapler to divide the appendix flush with the cecum. Two vascular reloads on the same stapler was then used to divide the mesoappendix. The appendix was then placed into an Endo-Catch bag and brought out through the periumbilical trocar port site appears passed off table sent to pathology for examination. I then examined both staple lines. The staple line on the cecum appeared to be intact without any bleeding. The staple line on the mesoappendix had a small amount of oozing of blood on the 1 portion and this was treated electrocautery to achieve hemostasis. I then irrigated out the right lower quadrant the abdomen the pelvis. Hemostasis was good and there was no large blood clots remaining. I then proceeded to remove the trocar ports under direct visualization all port sites appeared hemostatic. The abdomen was allowed to decompress. The port sites then irrigated sterile saline solution hemostasis was good. The 12mm periumbilical trocar port fascial defect was closed utilizing 0 Vicryl suture at the fascial level. The skin edges in all the port sites were then approximated utilizing a running subcuticular 4 Monocryl suture. Incisions were then cleaned and then skin glue was applied. Lowery catheter was removed at the end the procedure. The patient tolerated the procedure well no complications. All sponges, needles, and instrument counts were correct at the end procedure. EBL was _10__cc. The patient was awakened and taken to recovery in stable and satisfactory condition. Implants None Estimated Blood Loss 10 Drains No Packing No Pathology Yes (Appendix to pathology) Complications No immediate complications Condition Stable Disposition PACU [facility] Billing Surgery - Charge Forward: Surgery Billing
[2025-09-07] MEDS: fentaNYL CITRATE INJ (*CRX) 100 MCG/2 ML VIAL 25 MCG IV PUSH ×4 (15:40→16:00)
--- OUTSIDE RECORDS SUMMARY | 2025-09-07 15:48 | XMS_ITS | Clinical Summary ---
Author Organization [facility] [employer] Address [address] [place] [address] Care Team Providers Care Laboratory Equipment Installer Name Role Phone Christiano Felix MD Primary Care Provider [phone] Source Comments [facility] [employer],non-owned Affiliates and Associated Physician Practices is amultiple site organization consisting of ambulatory clinics and hospital sitesin [place], [place], [place] and [place]. This disclosure is being madepursuant to the Care Everywhere program and may not contain all information available regarding this patient. 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
[2025-09-07] MEDS: ONDANSETRON INJ 4 MG/2 ML VIAL IV PUSH (15:50)
[2025-09-07] MEDS: IBUPROFEN 600 MG TABLET PO (16:43)
--- NOTE | 2025-09-07 18:30 | PM.DS ---
DS: Admitting Diagnosis Discharge Date September 07, 2025 Admitting Diagnosis Acute appendicitis DS: Discharge Diagnosis Discharge Diagnosis (1) Acute appendicitis: Qualifiers: Acute appendicitis type: with localized peritonitis Appendicitis abscess presence: unspecified whether abscess present Appendicitis gangrene presence: unspecified whether gangrene present Appendicitis perforation presence: unspecified whether perforation present Qualified Code(s): K35.30 - Acute appendicitis with localized peritonitis, without perforation or gangrene Code(s): K35.80 - Unspecified acute appendicitis Status: Acute Assessment and Plan: Patient doing well status post laparoscopic appendectomy earlier today. May discharge home. Postoperative instructions written. DS: Summary Hospital Course Reason for hospitalization: Acute appendicitis Hospital Course: Patient presented to the emergency room with a 12hour history of worsening lower abdominal pain which localized right lower quadrant the abdomen. Workup in the emergency room showed a leukocytosis or and 13,000. CT scan abdomen pelvis showed a dilated and inflamed appendix consistent with AA nonruptured acute appendicitis. She subsequent was admitted to the surgical floor. She was given broad-spectrum IV antibiotics to cover her appendicitis and kept NPO and hydrated with IV fluids. She was also given pain meds as needed until surgery. Later in the day she was then taken to the operating room she underwent uncomplicated laparoscopic appendectomy. Postoperatively in the recovery under course was uneventful she was transferred back to surgical floor for routine care. While in the surgical floor she was able to tolerate some chicken noodle soup without any nausea or vomiting. Pain was okay without the use of any IV pain medications. He was able to get up and ambulate to the bathroom without assistance and urinate without difficulty. Her incisions were clean and dry upon my inspection. I felt that she could be discharged home late on the day of surgery as she was doing well. She was discharged home and instructions for activity and follow-up were written. Prescription for [place] for pain medications at home was sent to her pharmacy and she was instructed that she could also just take [id number] Tylenol and or ibuprofen if she did not wish to use a narcotic pain medications. Status at Discharge Functional status at discharge: independent ambulation Overall status at discharge: patient is back to baseline Time Spent with Patient Time attestation: Total time spent providing and/or coordinating discharge services: Time spent: Less than 30 minutes Exam GI: Other: Abdomen is soft and nondistended. Expected mild tenderness to palpation around the port site incisions. The port sites were dressed with skin glue and there is no bleeding or drainage. DS: Data Data Completed and Pending Pending studies at discharge: Pending at discharge 09/07/25 14:37 Surgical [PTH] Routine Labs on day of discharge: Labs from last 24 hours 09/06/25 09/06/25 09/06/25 20:35 20:28 19:56 WBC 14.2 H RBC 4.53 Hgb 13.5 D Hct 42.0 MCV 92.7 MCH 29.8 MCHC 32.1 RDW 12.2 Plt Count 289 MPV 9.6 Immature Gran % (Auto) 0.3 Neut % (Auto) 86.7 H Lymph % (Auto) 7.8 L [place] % (Auto) 4.9 Eos % (Auto) 0.1 Baso % (Auto) 0.2 Lymph # (Auto) 1.11 [place] # (Auto) 0.7 H Eos # (Auto) 0.0 Baso # (Auto) 0.0 Abs Immat Gran (auto) 0.04 H Absolute Neuts (auto) 12.3 H Absolute Nucleated RBC 0.000 Nucleated RBC % 0.0 Sodium 134 L Potassium 3.9 Chloride 102 Carbon Dioxide 22 Anion Gap 10 BUN 12 Creatinine 0.62 L Estim Creat Clear Calc 116 Estimated GFR > 60 Glucose 110 Calcium 9.4 Total Bilirubin 0.9 AST 45 H ALT 36 H Alkaline Phosphatase 69 Total Protein 8.9 H Albumin 4.9 Lipase 115 Urine Color Yellow Urine Appearance Clear Urine pH 7.5 Ur Specific [place] 1.005 Urine Protein Negative Urine Glucose (UA) Negative Urine Ketones Negative Ur Blood (Man) Negative Urine Nitrate Negative Urine Bilirubin Negative Urine Urobilinogen 0.2 Leukocyte Esterase Rfl Negative POC Urine HCG, Qual Negative Discharge Plan Discharge Attending physician on discharge: Priyank Smith Discharging Clinician: Priyank Smith Anticipated Discharge Date/Time: 09/07/25 18:29 Patient Disposition: Home Activity: other - see discharge instructions Diet: other - see discharge instructions Wound Care Instructions: other - see discharge instructions Discharge Instructions: May discharge home when stable. Follow up with Dr. Smith in the office in 2 weeks. Patient to call [phone] for an appointment. May shower in 24hours but do not soak incisions under water for 2 weeks. No lifting more than 10 to 15 lb for 2 weeks. May advance diet as tolerated. No driving for at least 3 days or until no longer taking any narcotic pain medication. Resume all home medications. Prescription for narcotic pain medicines will be sent to the patient's pharmacy if needed. May use Tylenol and/or ibuprofen in addition to or in place of narcotic pain medications for postoperative pain. Patient Instructions: Antibiotic Form Patient Language: Cameroonian Stand Alone Forms: General Discharge Information Follow-up/Referrals: Priyank Smith MD [Physician, General Surgery] Discharge Medications: New hydrocodone-acetaminophen 5-325 mg tablet 1 tablet PO Q4H PRN (Reason: pain) Qty: 12 0RF No Action No Home Medications Date of admission: 09/06/25 21:59 Primary Care Provider: rKistina Kay Admitting Provider: Priyank Smith Attending physician on admission: Priyank Smith Condition: Stable
== END 2025-09-07 20:20 | disposition home or self-care (01) ==
LOC: ANHED 20:03 → ANH3MED 22:19
PROVIDERS: Admitting Provider Surgery; Emergency Provider Student in an Organized Health Care Education/Training Program; PCP Nurse Practitioner Family; Visit Provider Surgery
PROC: 0DTJ4ZZ Resection of Appendix, Percutaneous Endoscopic Approach (ICD-10-PCS; CPT 44970; principal; 2025-09-07 13:30)
DX: K35.30 Acute appendicitis with localized peritonitis, without perforation or gangrene (principal)
CPT/HCPCS: 44970; 36415; 74177; 80053; 81003; 81025; 83690; 85025; 88304; 96365; 96367; 96375; 96376; 99285; A9270; G0378; J0330; J1100; J1741; J2004; J2185; J2250; J2270; J2405; J2470; J2704; J3010; J7030; J7120; Q9967